=== PATIENT | male | born 1975 | race African-American/Black ===

== ENCOUNTER 2022-03-17 14:04 | Emergency (ER) | payer BC, OTHER ==
[2022-03-17 14:16] VITALS: BP 140/70; PULSE 89; TEMP 98.1; BMI 36.8
[2022-03-17] MEDS ORDERED: ACETAMINOPHEN 500 MG TABLET (FP) PO ONE (14:43)
[2022-03-17 16:42] LABS: BASO % 0.5 % (0-2.0); EOS % 0.1 % (0-4.5); HEMATOCRIT 46.1 % (35.4-49); HEMOGLOBIN 15.3 GM/dL (11.7-16.9); LYMPH % 12.6 % (8-40); MCH 24.6 pg (25.7-33.7); MCHC 33.1 g/dl (32.0-35.9); MEAN CELL VOLUME 74.2 fl (80-96); MONO % 5.2 % (3.8-10.2); NEUT % 81.6 % (42.8-82.8); PLATELET COUNT 193 10^3/uL (134-434); RBC 6.22 M/mm3 (4.00-5.60); RDW 15.1 % (11.9-15.9); WHITE BLOOD COUNT 8.5 K/mm3 (4.0-10.0)
[2022-03-17 16:50] LABS: INR 1.08 (0.83-1.09); PROTHROMBIN TIME (PATIENT) 12.4 SEC (9.7-13.0)
[2022-03-17 16:52] LABS: ACTIVATED PTT 32.6 SECONDS (25.2-36.5)
[2022-03-17 17:01] LABS: ALBUMIN 4.3 g/dl (3.4-5.0); CALCIUM 9.4 mg/dL (8.5-10.1)
[2022-03-17 17:02] LABS: BLOOD UREA NITROGEN 15.2 mg/dL (7-18)
[2022-03-17 17:05] LABS: CREATININE 1.4 mg/dL (0.55-1.3)
[2022-03-17 17:06] LABS: BILIRUBIN,TOTAL 0.8 mg/dL (0.2-1); TOT PROT 7.8 g/dl (6.4-8.2)
== END 2022-03-17 18:19 | disposition home or self-care (01) ==
LOC: JER 14:04
DX: S86.812A Strain of other muscle(s) and tendon(s) at lower leg level, left leg, initial encounter (principal)
CPT/HCPCS: 36415; 72170-TC-FY; 73564-TC-RT-FY; 76882-TC-RT; 80053; 85025; 85610; 85730; 86850; 86900; 86901; 99284-25; C9803-CS; U0003; U0005

== ENCOUNTER 2022-03-20 04:16 | Day surgery (SDC) | payer BC, OTHER ==
[2022-03-18 17:09] VITALS: BMI 36.6
[2022-03-20 10:12] LABS: EPI CELLS 1 /uL (0-25.1); HYALINE CASTS 0 /uL (0-3.1); PH,URINE 5.5 (5.0-8.0); URINE APPEARANCE CLEAR; URINE BACTERIA 0 /uL (0-1359); URINE BILIRUBIN NEGATIVE (NEGATIVE); URINE COLOR YELLOW; URINE GLUCOSE (UA) NEGATIVE (NEGATIVE); URINE KETONE NEGATIVE (NEGATIVE); URINE LEUK ESTERASE NEGATIVE (NEGATIVE); URINE NITRITE NEGATIVE (NEGATIVE); URINE PROTEIN NEGATIVE (NEGATIVE); URINE RBC 5 /uL (0-23.9); URINE UROBILINOGEN 0.2 mg/dL (0.2-1.0); URINE WBC 1 /uL (0-25.8)
[2022-03-20] MEDS ORDERED: MIDAZOLAM HCL 2 MG/2 ML SINGLE DOSE VIAL ONE ×2 (10:35)
[2022-03-20] MEDS ORDERED: ROPIVACAINE HCL 0.5% 30ML VIAL ONE (10:36)
[2022-03-20] MEDS ORDERED: PROPOFOL 20 ML ONE (11:01)
[2022-03-20] MEDS ORDERED: LIDOCAINE HCL/PF 2% SDV 5ML VIAL ONE (11:11)
[2022-03-20] MEDS ORDERED: ONDANSETRON 4 MG/2 ML VIAL ONE (11:11)
[2022-03-20] MEDS ORDERED: DEXAMETHASONE SOD PHOSPHATE 4 MG/1 ML VIAL ONE (11:11)
[2022-03-20] MEDS ORDERED: ceFAZolin SODIUM 1 GM VIAL IVPB ONE (11:14)
[2022-03-20] MEDS ORDERED: KETOROLAC TROMETHAMINE 30 MG/1 ML VIAL ONE (11:49)
[2022-03-20] MEDS ORDERED: SUCCINYLCHOLINE CHLORIDE 200 MG/10 ML SYRINGE ONE (12:15)
[2022-03-20] MEDS ORDERED: ONDANSETRON 4 MG/2 ML VIAL IVPUSH PRN (12:39)
[2022-03-20] MEDS ORDERED: oxyCODONE HCL 5 MG TABLET PO PRN ×2 (12:39)
[2022-03-20] MEDS ORDERED: LACTATED RINGERS SOLUTION 1,000 ML IV SCH (12:45)
[2022-03-20] MEDS: HYDROmorphone HCl 2 MG/ML VIAL ONE ×2 (13:02→13:18)
[2022-03-20] MEDS ORDERED: HYDROmorphone HCl 2 MG/ML VIAL IVPUSH PRN (13:05)
[2022-03-20] MEDS ORDERED: oxyCODONE HCL 10 MG SUSTAINED ACTING TABLET ONE (14:27)
[2022-03-20 14:31] VITALS: TEMP 97.7
[2022-03-20 15:11] VITALS: BP 138/85; PULSE 72
== END 2022-03-20 17:30 | disposition home or self-care (01) ==
LOC: JASU-SURG 04:16
PROVIDERS: ATTEND Orthopaedic Surgery
PROC: 0LQQ0ZZ Repair Right Knee Tendon, Open Approach (ICD-10-PCS; 2022-03-20)
PROC: 0LQN0ZZ Repair Right Lower Leg Tendon, Open Approach (ICD-10-PCS; principal; 2022-03-20 10:59)
DX: S76.111A Strain of right quadriceps muscle, fascia and tendon, initial encounter (principal); X58.XXXA Exposure to other specified factors, initial encounter; Y93.9 Activity, unspecified; Y92.9 Unspecified place or not applicable; Y99.9 Unspecified external cause status
CPT/HCPCS: 81003; 94760